=== PATIENT | male | born 1950 ===

== ENCOUNTER 2021-02-10 16:46 | Emergency (ER) | payer MEDICAID ==
[~2021-02-10] VITALS: Ht 180.3 cm; Wt 100.0 kg
[2021-02-10 16:50] VITALS: BP 129/80
--- NOTE | 2021-02-10 16:54 | NUR ---
BIB [facility] FROM [facility]. +ETOH. PT UNABLE TO AMBULATE. FILM SORTER [facility]: [facility] 105 PT CONNECTED TO MONITORING. CALL LIGHT IN REACH.
--- NOTE | 2021-02-10 17:03 | NUR ---
BREAK RN: PT ATTEMPTING TO GET OUT OF BED, NEEDS FREQUENT REDIRECTION TO REMAIN IN BED FOR SAFETY. BED RAILS UP X2, WARM BLANKETS GIVEN.
--- NOTE | 2021-02-10 18:08 | NUR ---
RECEIVED V/O FOR LEFT FOOT XRAY.
--- NOTE | 2021-02-10 18:39 | NUR ---
PT HAS REMOVED HIS MONITORING AND REFUSED TO PUT THEM BACK ON. PT SITTING ON [place] WATCHING TV. DODIE.
--- NOTE | 2021-02-10 19:14 | NUR ---
MD STATES PT TO BE MTF. PT PROVIDED SNACKS AND WATER.
[2021-02-10] MEDS ORDERED: ACETAMINOPHEN 500 MG TABLET ONE (19:45)
--- NOTE | 2021-02-10 19:50 | NUR ---
PATIENT SERVICE ASSOCIATE PER MAR.
[2021-02-10] MEDS ORDERED: ACETAMINOPHEN 500 MG TABLET PO ONE (20:00)
[2021-02-10] MEDS ORDERED: ACETAMINOPHEN 325 MG TABLET PO ONE (20:00)
--- NOTE | 2021-02-10 21:29 | NUR ---
PT AMBULATED TO RESTROOM WITH SHUFFLING BUT STEADY GAIT.
== END 2021-02-10 21:30 | disposition home or self-care (01) ==
LOC: ED 21:24
DX: L03.031 Cellulitis of right toe (principal); M19.072 Primary osteoarthritis, left ankle and foot; M19.071 Primary osteoarthritis, right ankle and foot; I10 Essential (primary) hypertension; F17.200 Nicotine dependence, unspecified, uncomplicated
CPT/HCPCS: 99283

== ENCOUNTER 2021-02-18 14:01 | Emergency (ER) | payer MEDICAID ==
[~2021-02-18] VITALS: Ht 177.8 cm; Wt 81.3 kg
--- NOTE | 2021-02-18 14:13 | NUR ---
PATIENT BIB EMS WITH CHIEF C/O GLF 3 HOURS AGO, PATIENT DID HIT BACK OF HEAD. PER EMS PATIENT HAS A LUMP ON BACK OF HEAD, ETOH. VSS EN ROUTE, BLOOD GLUCOSE 160, NO FURTHER INTERVENTIONS. PATIENT IS A POOR HISTORIAN, DOES NOT FULLY ANSWER QUESTIONS, UNCLEAR HOW MUCH PATINT DRINKS AND WHEN LAST DRINK WAS. NADN, PATIENT TACHYCARDIC, OTHER VSS, SIDE RAILS UP X2.
--- NOTE | 2021-02-18 14:15 | NUR ---
ERPA AT BEDSIDE FOR EVALUATION.
--- NOTE | 2021-02-18 14:28 | NUR ---
PATIENT TO CT SCAN.
--- NOTE | 2021-02-18 16:28 | NUR ---
PATIENT RESTING IN GURNEY WITH EYES CLOSED, RESP EVEN AND UNLABORED, VSS, SIDE RAILS UP X2, CALL LIGHT WITHIN REACH. PATIENT MTF.
--- NOTE | 2021-02-18 17:41 | NUR ---
PATIENT LAYING IN GURNEY WITH EYES CLOSED, RESP EVEN AND UNLABORED, VSS, SIDE RAILS UP X2, CALL LIGHT WITHIN REACH. PATIENT MTF.
--- NOTE | 2021-02-18 18:26 | NUR ---
WALKING PAST PATIENT'S ROOM, PATIENT UP AND OUT OF BED, FOOD TRAY PROVIDED. PATIENT TAKEN OFF OF O2, O2 SATURATION IS 98% RA.
--- NOTE | 2021-02-18 18:53 | NUR ---
REPORT TO MAURICIO REINOSO FOR TRANSFER OF PATIENT CARE.
--- NOTE | 2021-02-18 19:48 | NUR ---
Pt calm and sleeping in bed. Awakes to verbal. Pt Will drop RA sats to 70's. NC @ 3L placed with SPO2 into mid to high 90's. Will continue to monitor.
--- NOTE | 2021-02-18 21:40 | NUR ---
Attempted to road test patient. Pt unsteady on feet, pt back to bed. Will continue to monitor. Pt with stable VS. Breathing non labored.
[2021-02-18] MEDS ORDERED: IBUPROFEN 600 MG TABLET ONE (23:17)
[2021-02-18] MEDS ORDERED: IBUPROFEN 200 MG TABLET PO ONE (23:30)
[2021-02-19 00:57] VITALS: BP 135/80
--- NOTE | 2021-02-19 00:58 | NUR ---
Pt A&Ox4, steady on feet. Bus pass given. Patient/Caregiver given discharge instructions and they have confirmed that they understand the instructions. Patient ambulatory with steady gait.
== END 2021-02-19 00:59 | disposition home or self-care (01) ==
LOC: ED 02-19 00:19
DX: S09.90XA Unspecified injury of head, initial encounter (principal); F10.220 Alcohol dependence with intoxication, uncomplicated; I10 Essential (primary) hypertension; Y90.0 Blood alcohol level of less than 20 mg/100 ml; W18.30XA Fall on same level, unspecified, initial encounter; Y93.89 Activity, other specified; Y92.410 Unspecified street and highway as the place of occurrence of the external cause; Y99.8 Other external cause status
CPT/HCPCS: 70450; 72125; 99285